=== PATIENT | female | born 1940 | race Caucasian/White ===

== ENCOUNTER → 2017-02-01 | Outpatient (CLI) | payer MEDICARE, BC ==
[2017-02-01 08:33] LABS: Blood Urea Nitrogen 14 mg/dL (7-17); Non-African American GFR(MDRD) >60 (>60 ml/min/1.73 sqM)
--- NOTE | 2017-02-01 10:22 | CT ---
EXAMINATION TYPE: CT abdomen pelvis w con DATE OF EXAM: 02/01/2017 9:48 AM HISTORY: LLQ pain CT DLP: 474.6mGycm Automated Exposure Control for Dose Reduction was Utilized. CONTRAST: CT scan of the abdomen and pelvis is performed with IV Contrast, patient injected with 100 mL of Omni paque 300. COMPARISON: None. FINDINGS: LUNG BASES: No significant abnormality is appreciated. LIVER/GB: Cholecystectomy clips are seen.. PANCREAS: No significant abnormality is seen. 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 ADRENALS: No significant abnormality is seen. KIDNEYS: There is a subcentimeter low dense lesion posteriorly upper pole level posteriorly too small to further characterize but presumed benign. BOWEL: There are surgical clips at diaphragmatic hiatus likely related to Shiva fundoplication surgi jena repair. Small residual hiatal hernia is felt present on axial image 11 and coronal image 43. Oral contrast reaches level of splenic flexure making evaluation of distal bowel suboptimal. There is no suspicious small or large bowel dilatation. There is mild to moderate wall thickening beginning at le anjali of the proximal to mid transverse colon extending through the left and sigmoid colon through the rectum. Finding could be product of nondistention but a long segment mild colitis cannot be excluded. Finding is more prominent than would be suspected for nondistended colon. Clinical correlation is ad vised. UTERUS/ADNEXA: Uterus is surgically absent or markedly atrophic in appearance. LYMPH NODES: No greater than 1cm abdominal or pelvic lymph nodes are appreciated. OSSEOUS STRUCTURES: There is disc space narrowing with vacuum disc phenomenon anteriorly L2-L3 level. OTHER: No significant additional abnormality is seen. IMPRESSION: 1. Possible long segment mild colitis from proximal to mid transverse colon through the rectum, diffe rential includes infectious and inflammatory etiologies. Clinical correlation is advised.
== END | disposition home or self-care (01) ==
LOC: RADCTMAIN 07:52
PROVIDERS: ATTEND Family Medicine
DX: R10.32 Left lower quadrant pain (principal)
CPT/HCPCS: 82565; 84520; 74177; 36415; Q9967

== ENCOUNTER 2017-04-01 23:39 | Emergency (ER) | payer MEDICARE, BC ==
[2017-04-02] MEDS ORDERED: ACETAMINOPHEN TAB 500 MG TAB PO STA (00:43)
--- NOTE | 2017-04-02 01:29 | XR ---
EXAM: XR Chest, 2 Views CLINICAL HISTORY: Reason: Pain TECHNIQUE: Frontal and lateral views of the chest. COMPARISON: Chest x-ray dated 04/14/2013 FINDINGS: Lungs: Unremarkable. No consolidation. Pleural space: Unremarkable. No pneumothorax. Heart: Unremarkable. No cardiomegaly. Mediastinum: Unremarkable. Bones/joints: Mild degenerative changes of the osseous structures. IMPRESSION: No acute findings.
[2017-04-02 01:55] LABS: Basophils # (A) 0.1 k/uL (0-0.2); Basophils % (A) 1 %; CH 32.7; CHCM 34.2; Eosinophils # (A) 0.5 k/uL (0-0.7); Eosinophils % (A) 5 %; HCT 37.3 % (34.0-46.0); HDW 2.66; HGB 12.5 gm/dL (11.4-16.0); Luc # (Auto) 0.38; Luc % (Auto) 4; Lymphocytes # (A) 2.5 k/uL (1.0-4.8); Lymphocytes % (A) 23 %; MCH 32.2 pg (25.0-35.0); MCHC 33.5 g/dL (31.0-37.0); Mean Platelet Volume 8.1; Monocytes # (A) 0.7 k/uL (0-1.0); Monocytes % (A) 7 %; Neutrophils # (A) 6.5 k/uL (1.3-7.7); Neutrophils % (A) 61 %; RBC 3.89 m/uL (3.80-5.40); RDW 12.9 % (11.5-15.5); WBC 10.7 k/uL (3.8-10.6); WBC (Perox) 9.63
[2017-04-02 02:14] LABS: ALT 44 U/L (9-52); Alkaline Phosphatase 68 U/L (38-126); Anion Gap 10 mmol/L; Blood Urea Nitrogen 13 mg/dL (7-17); Calcium 9.8 mg/dL (8.4-10.2); Carbon Dioxide 23 mmol/L (22-30); Chloride 107 mmol/L (98-107); Glucose 138 mg/dL (74-99); Non-African American GFR(MDRD) >60 (>60 ml/min/1.73 sqM); Sodium 140 mmol/L (137-145); Total Bilirubin 1.1 mg/dL (0.2-1.3)
[2017-04-02 02:19] LABS: AST 44 U/L (14-36); Potassium 4.5 mmol/L (3.5-5.1); Total Protein 8.3 g/dL (6.3-8.2)
--- NOTE | 2017-04-02 02:24 | ED ---
Pediatric HENT HPI - General Chief Complaint: ENT Stated Complaint: Ear Pain/Fever/Vertigo Time Seen by Provider: 04/02/17 00:14 Source: patient, RN notes reviewed, old records reviewed Mode of arrival: ambulatory Limitations: no limitations - History of Present Illness Initial Comments: Is a 68-year-old female with chief complaint of left-sided ear pain. Patient reports that she's had this pain for the past few days. She reports that she's been battling with vertigo and is worse in her left ear and left side for the past 5 weeks. She reports that she does see an ENT doctor on Monday. Patient denies any specific headache or neck pain. She reports that she's noticed that she's had a slight fever is concerned she may have an ear infection. She reports that she was told that her eardrum is perforated. She states that she has not taken any Motrin or Tylenol for fever. She's if that she was mainly concerned because of that she needed to have that checked out. Patient reports she also had a mild cough. Denies any nausea or vomiting abdominal pain. Patient reports that her dizziness and vertigo is worse with certain positions. Patient states it's worse with laying down. Patient reports that she did see her primary care provider and was started on diazepam and meclizine. She states that makes her feel very funny. She states she does not take diazepam anymore but the meclizine helped somewhat. - Related Data Home Medications Medication Instructions Recorded Confirmed Levothyroxine Sodium [Synthroid] 75 mcg PO QAM 08/27/14 04/02/17 Losartan Potassium [Cozaar] 50 mg PO QAM 08/27/14 04/02/17 Pantoprazole Sodium 40 mg PO QAM 08/27/14 04/02/17 Rosuvastatin Calcium [Crestor] 10 mg PO HS 08/27/14 04/02/17 diphenhydrAMINE [Benadryl] 25 mg PO BID PRN 08/27/14 04/02/17 Previous Rx's Medication Instructions Recorded Amoxic-Pot Clav 875-125Mg 1 tab PO Q12HR #20 tablet 04/02/17 [Augmentin 875-125] Ciprofloxacin Ophth Soln [Ciloxan 10 drops LEFT EAR BID #1 bottle 04/02/17 0.3% Ophth Soln] Allergies Allergy/AdvReac Type Severity Reaction Status Date / Time adhesive Allergy Rash/Hives Verified 04/02/17 00:03 Review of Systems ROS Statement: Those systems with pertinent positive or pertinent negative responses have been documented in the HPI. ROS Other: All systems not noted in ROS Statement are negative. Past Medical History Past Medical History: GERD/Reflux, Hyperlipidemia, Hypertension, Pneumonia, Thyroid Disorder Additional Past Medical History / Comment(s): HIATAL HERNIA. COLON POLYPS. PT STATES SHE HAS A RASH/ITCHING FROM EXPOSURE "STING METAL" WHICH IS A GARDEN WEED. History of Any Multi-Drug Resistant Organisms: None Reported Past Surgical History: Breast Surgery, Cholecystectomy, Hysterectomy, Orthopedic Surgery Additional Past Surgical History / Comment(s): BREAST BIOPSIES ALL NEGATIVE. CATARACTS REMOVED. Past Anesthesia/Blood Transfusion Reactions: No Reported Reaction Past Psychological History: No Psychological Hx Reported Smoking Status: Never smoker Past Alcohol Use History: None Reported Past Drug Use History: None Reported General Exam - General Exam Comments Initial Comments: This is a pleasant 28-year-old female. Patient does not appear to be in any acute distress. Limitations: no limitations General appearance: alert, in no apparent distress Head exam: Present: atraumatic, normocephalic, normal inspection Eye exam: Present: normal appearance, PERRL, EOMI. Absent: scleral icterus, conjunctival injection, periorbital swelling ENT exam: Present: normal exam, mucous membranes moist, other (mild tenderness on left mastoid. ). Absent: TM's normal bilaterally (evidence of left tm perforation at 11 oclock position. ) Neck exam: Present: normal inspection. Absent: tenderness, meningismus, lymphadenopathy Respiratory exam: Present: normal lung sounds bilaterally. Absent: respiratory distress, wheezes, rales, rhonchi, stridor Cardiovascular Exam: Present: regular rate, normal rhythm, normal heart sounds. Absent: systolic murmur, diastolic murmur, rubs, gallop, clicks GI/Abdominal exam: Present: soft, normal bowel sounds. Absent: distended, tenderness, guarding, rebound, rigid Extremities exam: Present: normal inspection, full ROM, normal capillary refill. Absent: tenderness, pedal edema, joint swelling, calf tenderness Back exam: Present: normal inspection Neurological exam: Present: alert, oriented X3, CN II-XII intact Psychiatric exam: Present: normal affect, normal mood Skin exam: Present: warm, dry, intact, normal color. Absent: rash Course Vital Signs 04/02/17 04/02/17 00:01 03:36 Temperature 100.0 F H 98.3 F Pulse Rate 100 80 Respiratory 20 16 Rate Blood Pressure 136/66 121/62 O2 Sat by Pulse 98 94 L Oximetry Medical Decision Making - Medical Decision Making Is a 68-year-old female with chief complaint of left-sided ear pain. Patient reports that she's had this pain for the past few days. She reports that she's been battling with vertigo and is worse in her left ear and left side for the past 5 weeks. She reports that she does see an ENT doctor on Monday. Patient denies any specific headache or neck pain. She reports that she's noticed that she's had a slight fever is concerned she may have an ear infection. She reports that she was told that her eardrum is perforated. She states that she has not taken any Motrin or Tylenol for fever. She's if that she was mainly concerned because of that she needed to have that checked out. Patient reports she also had a mild cough. Denies any nausea or vomiting abdominal pain. Patient left TM does show signs of previous perforation at 11 oclock position. Patient has no meningeal signs or neuroogical decicits. Patient lab work is negative. Patient does have a mild fever, patient given PO tylenol. CXR is normal. Patient has mild tenderness over left mastoid, CT mastoid is negative for any acute process. PAtient will be discharged with augmentin and ciprodrops for ear. discussed continued follow up with ENT specialist on Monday, discussed also following up with PCP and PT for possible Pop hallpike maneuver for helping her vertigo. Patient advised to continue meclizine. - Lab Data Result diagrams: 04/02/17 01:40 04/02/17 01:40 Lab Results 04/02/17 04/02/17 04/02/17 Range/Units 01:40 01:40 01:40 WBC 10.7 H (3.8-10.6) k/uL RBC 3.89 (3.80-5.40) m/uL Hgb 12.5 (11.4-16.0) gm/dL Hct 37.3 (34.0-46.0) % MCV 96.0 (80.0-100.0) fL MCH 32.2 (25.0-35.0) pg MCHC 33.5 (31.0-37.0) g/dL RDW 12.9 (11.5-15.5) % Plt Count 182 (150-450) k/uL Neutrophils % 61 % Lymphocytes % 23 % Monocytes % 7 % Eosinophils % 5 % Basophils % 1 % Neutrophils # 6.5 (1.3-7.7) k/uL Lymphocytes # 2.5 (1.0-4.8) k/uL Monocytes # 0.7 (0-1.0) k/uL Eosinophils # 0.5 (0-0.7) k/uL Basophils # 0.1 (0-0.2) k/uL Sodium 140 (137-145) mmol/L Potassium 4.5 (3.5-5.1) mmol/L Chloride 107 (98-107) mmol/L Carbon Dioxide 23 (22-30) mmol/L Anion Gap 10 mmol/L BUN 13 (7-17) mg/dL Creatinine 0.80 (0.52-1.04) mg/dL Est GFR (MDRD) Af Amer >60 (>60 ml/min/1.73 sqM) Est GFR (MDRD) Non-Af >60 (>60 ml/min/1.73 sqM) Glucose 138 H (74-99) mg/dL Plasma Lactic Acid Dmitri 1.4 (0.7-2.0) mmol/L Calcium 9.8 (8.4-10.2) mg/dL Total Bilirubin 1.1 (0.2-1.3) mg/dL AST 44 H (14-36) U/L ALT 44 (9-52) U/L Alkaline Phosphatase 68 (38-126) U/L Total Protein 8.3 H (6.3-8.2) g/dL Albumin 4.6 (3.5-5.0) g/dL Urine Color Urine Appearance (Clear) Urine pH (5.0-8.0) Ur Specific [place] (1.001-1.035) Urine Protein (Negative) Urine Glucose (UA) (Negative) Urine Ketones (Negative) Urine Blood (Negative) Urine Nitrite (Negative) Urine Bilirubin (Negative) Urine Urobilinogen (<2.0) mg/dL Ur Leukocyte Esterase (Negative) Urine RBC (0-5) /hpf Urine WBC (0-5) /hpf 04/02/17 Range/Units 01:40 WBC (3.8-10.6) k/uL RBC (3.80-5.40) m/uL Hgb (11.4-16.0) gm/dL Hct (34.0-46.0) % MCV (80.0-100.0) fL MCH (25.0-35.0) pg MCHC (31.0-37.0) g/dL RDW (11.5-15.5) % Plt Count (150-450) k/uL Neutrophils % % Lymphocytes % % Monocytes % % Eosinophils % % Basophils % % Neutrophils # (1.3-7.7) k/uL Lymphocytes # (1.0-4.8) k/uL Monocytes # (0-1.0) k/uL Eosinophils # (0-0.7) k/uL Basophils # (0-0.2) k/uL Sodium (137-145) mmol/L Potassium (3.5-5.1) mmol/L Chloride (98-107) mmol/L Carbon Dioxide (22-30) mmol/L Anion Gap mmol/L BUN (7-17) mg/dL Creatinine (0.52-1.04) mg/dL Est GFR (MDRD) Af Amer (>60 ml/min/1.73 sqM) Est GFR (MDRD) Non-Af (>60 ml/min/1.73 sqM) Glucose (74-99) mg/dL Plasma Lactic Acid Dmitri (0.7-2.0) mmol/L Calcium (8.4-10.2) mg/dL Total Bilirubin (0.2-1.3) mg/dL AST (14-36) U/L ALT (9-52) U/L Alkaline Phosphatase (38-126) U/L Total Protein (6.3-8.2) g/dL Albumin (3.5-5.0) g/dL Urine Color Light Yellow Urine Appearance Clear (Clear) Urine pH 5.0 (5.0-8.0) Ur Specific [place] 1.008 (1.001-1.035) Urine Protein Negative (Negative) Urine Glucose (UA) Negative (Negative) Urine Ketones Negative (Negative) Urine Blood Negative (Negative) Urine Nitrite Negative (Negative) Urine Bilirubin Negative (Negative) Urine Urobilinogen <2.0 (<2.0) mg/dL Ur Leukocyte Esterase Small H (Negative) Urine RBC <1 (0-5) /hpf Urine WBC 11 H (0-5) /hpf Disposition Clinical Impression: Left ear pain, Vertigo, Fever Disposition: HOME SELF-CARE Condition: Good Instructions: Earache (ED) Additional Instructions: Patient needs to follow-up with her ENT specialist on Monday. Continue to take Tylenol for fever. Complete entire antibiotic and ear drop prescription. Patient should return to the emergency department if any alarming signs or symptoms occur. Prescriptions: Amoxic-Pot Clav 875-125Mg [Augmentin 875-125] 1 tab PO Q12HR #20 tablet Ciprofloxacin Ophth Soln [Ciloxan 0.3% Ophth Soln] 10 drops LEFT EAR BID #1 bottle Referrals: Gage Brito MD [Primary Care Provider] - 1-2 days Time of Disposition: 03:25
--- NOTE | 2017-04-02 02:28 | CT ---
EXAM: CT Maxillofacial Without Intravenous Contrast CLINICAL HISTORY: Pain. Ruptured left eardrum. TECHNIQUE: Axial computed tomography images of the face without intravenous contrast. CTDI is 32.1 mGy and DLP is 480.8 mGy-cm This CT exam was performed using one or more of the following dose reduction techniques: automated exposure control, adjustment of the mA and/or kV according to patient size, and/or use of iterative reconstruction technique. COMPARISON: No relevant prior studies available. FINDINGS: Bones/joints: No acute fracture. Soft tissues: Unremarkable. Orbits: Unremarkable. Sinuses: Minimal mucosal thickening in the paranasal sinuses. No air- fluid levels. Mastoid air cells: Minimal fluid noted within the left mastoid air cells. Otherwise, the mastoids are unremarkable. Auditory system: The ossicles are unremarkable. The external auditory canals are unremarkable. IMPRESSION: No acute findings.
[2017-04-02 03:01] LABS: Appearance,Urine Clear (Clear); Bilirubin,Urine Negative (Negative); Glucose,Urine (UA) Negative (Negative); Ketones,Urine Negative (Negative); Leukocyte Esterase,Urine Small (Negative); Nitrite,Urine Negative (Negative); Particle Count 509; Protein,Urine Negative (Negative); RBC,Urine <1 /hpf (0-5); Specific Gravity,Urine 1.008 (1.001-1.035); UA Billing (MACRO vs. MICRO) MICRO; Urobilinogen,Urine <2.0 mg/dL (<2.0); WBC,Urine 11 /hpf (0-5)
[2017-04-02] MEDS ORDERED: AMOXIC-POT CLAV 875MG STARTER 2 EACH TABLET PO STA (03:25)
[2017-04-02] MEDS ORDERED: CIPROFLOXACIN 0.3% OPHTH SOLN 2.5 ML BTL LEFT EAR STA (03:26)
[2017-04-02 03:38] VITALS: BP 121/62; PULSE 80; RESP 16; TEMP 98.3
== END 2017-04-02 04:16 | disposition home or self-care (01) ==
LOC: EC 23:39
DX: H92.02 Otalgia, left ear (principal); R42 Dizziness and giddiness; R50.9 Fever, unspecified; I10 Essential (primary) hypertension; E78.5 Hyperlipidemia, unspecified; K21.9 Gastro-esophageal reflux disease without esophagitis; E07.9 Disorder of thyroid, unspecified; Z79.899 Other long term (current) drug therapy; Z91.048 Other nonmedicinal substance allergy status
CPT/HCPCS: 36415; 70486; 71020; 80053; 81001; 83605; 85025; 99285

== ENCOUNTER → 2017-06-23 | Outpatient (CLI) | payer MEDICARE, BC ==
--- NOTE | 2017-06-24 08:04 | MR ---
EXAMINATION TYPE: MR brain wo con DATE OF EXAM: 06/23/2017 COMPARISON: CT mastoids April 02, 2017 HISTORY: Benign paroxysmal vertigo, left ear and dizziness per order. TECHNIQUE: Multiplanar, multisequence imaging of the brain and brainstem is performed without IV cont rast. FINDINGS: Diffusion weighted images demonstrate no evidence of a recent infarct or other diffusion abnormality. There is no worrisome extra-axial fluid collection. There is ventricular and sulcal prominence consis tent with diffuse cerebral atrophy. There are some scattered foci of T2 hyperintensity seen throughou t the white matter. Less than 5 lesions are present. Lesions are nonspecific in appearance and distri bution but most likely on basis of product of chronic small vessel ischemic change in patient this ag e Midline structures demonstrate normal morphology. The craniocervical junction appears within normal limits. Normal vascular flow voids are present. The visualized sinuses are clear and the globes are i ntact. Minimal increased fluid is seen anteriorly involving left-sided mastoid air cells IMPRESSION: There is mild diffuse cerebral atrophy and chronic small vessel ischemic change appreciat ed. Perhaps mild left-sided mastoiditis, clinical correlation advised. No significant finding otherwi se is seen to account for patient's symptoms of dizziness and left-sided hearing loss.
== END | disposition home or self-care (01) ==
LOC: RADMRIMAIN 15:07
PROVIDERS: ATTEND Psychiatry & Neurology Neurology
DX: I67.82 Cerebral ischemia (principal); G31.9 Degenerative disease of nervous system, unspecified
CPT/HCPCS: 70551

== ENCOUNTER → 2017-08-14 | Outpatient (CLI) | payer MEDICARE, BC ==
--- NOTE | 2017-08-16 09:13 | MM ---
Reason for exam: screening (asymptomatic). Last mammogram was performed 1 year and 10 months ago. History: Patient is postmenopausal. Family history of breast cancer in paternal aunt at age 40. Benign excisional biopsy of the right breast, 1978. Benign excisional biopsy of the left breast, 1976. Took estrogen for 15 years beginning at age 46. Physical Findings: A clinical breast exam by your physician is recommended on an annual basis and results should be correlated with mammographic findings. MG 3D Screening Mammo W/Cad Bilateral CC and MLO view(s) were taken. Prior study comparison: October 27, 2015, mammogram. The breast tissue is heterogeneously dense. This may lower the sensitivity of mammography. There is increased density left lower inner quadrant, increasing from priors. This finding is changed when compared with previous exams. ASSESSMENT: Incomplete: need additional imaging evaluation, BI-RAD 0 RECOMMENDATION: Special view mammogram of the left breast. If lesion persists on supplemental views, image directed ultrasound is recommended. [facility] will attempt to contact patient to return for supplemental views and ultrasound if indicated.
== END | disposition home or self-care (01) ==
LOC: RADMAMWWP 12:49
PROVIDERS: ATTEND Obstetrics & Gynecology
DX: Z12.31 Encounter for screening mammogram for malignant neoplasm of breast (principal)
CPT/HCPCS: 77063; G0202

== ENCOUNTER → 2017-08-22 | Outpatient (CLI) | payer MEDICARE, BC ==
--- NOTE | 2017-08-22 13:48 | MM ---
Reason for exam: additional evaluation requested from abnormal screening. Last mammogram was performed less than 1 month ago. History: Patient is postmenopausal. Family history of breast cancer in paternal aunt at age 40. Benign excisional biopsy of the right breast, 1978. Benign excisional biopsy of the left breast, 1976. Took estrogen for 15 years beginning at age 46. Physical Findings: Nurse did not find any significant physical abnormalities on exam. MG 3D Work Up W/Cad LT CC and MLO view(s) were taken of the left breast. Prior study comparison: August 14, 2017, bilateral MG 3d screening mammo w/cad. October 27, 2015, mammogram. The breast tissue is extremely dense which could obscure a lesion on mammography. Finding: There are typically benign calcifications in the left breast. Skin thickening left areolar/nipple. These results were verbally communicated with the patient and result sheet given to the patient on 08/22/17. ASSESSMENT: Suspicious, BI-RAD 4 RECOMMENDATION: Surgical consultation of the left breast. Called Dr. Riggs with mammographic findings and has scheduled an appointment for the patient for 08/30/17 at 3:[address] Yee. PRELIMINARY REPORT CALLED AND FAXED TO DR. YEE ON 08/22/17.
== END | disposition home or self-care (01) ==
LOC: RADMAMWWP 12:50
PROVIDERS: ATTEND Obstetrics & Gynecology
DX: R92.8 Other abnormal and inconclusive findings on diagnostic imaging of breast (principal)
CPT/HCPCS: G0206; G0279

== ENCOUNTER → 2018-05-18 | Outpatient (CLI) | payer MEDICARE, BC ==
--- NOTE | 2018-05-19 10:51 | CT ---
EXAMINATION TYPE: CT abdomen pelvis w con DATE OF EXAM: 05/18/2018 COMPARISON: Prior CT 02/01/2017 HISTORY: Abnormal xray. CT DLP: 413.7 mGycm Automated exposure control for dose reduction was used. TECHNIQUE: Helical acquisition of images from the lung bases through the pelvis have been completed. CONTRAST: Performed with Oral Contrast and with IV Contrast, patient injected with 80 mL of Isovue M300. FINDINGS: Postop changes at the gastroesophageal junction are stable. LUNG BASES: No significant abnormality is appreciated. AORTA: No significant abnormality is appreciated. LIVER/GB: Patient is post cholecystectomy. Liver is stable. PANCREAS: No significant abnormality is seen. SPLEEN: No significant abnormality is seen. ADRENALS: No significant abnormality is seen. KIDNEYS: No significant abnormality is seen. REPRODUCTIVE ORGANS: No significant abnormality is seen BOWEL: Sigmoid colon shows a similar appearance, difficult to exclude mucosal abnormality, colitis a s on prior exam FREE AIR: No Free Air visible. ASCITES: None visible. PELVIC ADENOPATHY: None visualized. RETROPERITONEAL ADENOPATHY: No Retroperitoneal Adenopathy visible. URINARY BLADDER: No significant abnormality is seen. OSSEOUS STRUCTURES: No significant abnormality is seen. IMPRESSION: CORRELATE FOR COLITIS. FOLLOW-UP INDICATED. POSTOP CHANGES.
== END | disposition home or self-care (01) ==
LOC: RADCTMAIN 15:14
PROVIDERS: ATTEND Family Medicine
DX: Z09 Encounter for follow-up examination after completed treatment for conditions other than malignant neoplasm (principal); K56.699 Other intestinal obstruction unspecified as to partial versus complete obstruction; K44.9 Diaphragmatic hernia without obstruction or gangrene; Z98.890 Other specified postprocedural states; Z87.19 Personal history of other diseases of the digestive system
CPT/HCPCS: 82565; 84520; 74177; 36415; Q9967

== ENCOUNTER 2018-06-02 01:24 | Emergency (ER) | payer MEDICARE, BC ==
[2018-06-02 02:15] LABS: Basophils % (A) 0 %; Eosinophils # (A) 0.3 k/uL (0-0.7); Eosinophils % (A) 4 %; HCT 37.9 % (34.0-46.0); HGB 12.6 gm/dL (11.4-16.0); Lymphocytes # (A) 1.1 k/uL (1.0-4.8); Lymphocytes % (A) 15 %; MCHC 33.2 g/dL (31.0-37.0); MCV 96.3 fL (80.0-100.0); Mean Platelet Volume 7.9; Monocytes # (A) 0.5 k/uL (0-1.0); Monocytes % (A) 6 %; Neutrophils # (A) 5.7 k/uL (1.3-7.7); Neutrophils % (A) 72 %; Platelet Count 161 k/uL (150-450); RBC 3.93 m/uL (3.80-5.40); RDW 12.6 % (11.5-15.5); WBC 7.8 k/uL (3.8-10.6)
[2018-06-02 02:37] LABS: Calcium 9.3 mg/dL (8.4-10.2); Potassium 4.1 mmol/L (3.5-5.1); Total Bilirubin 0.4 mg/dL (0.2-1.3); Total Protein 6.7 g/dL (6.3-8.2)
[2018-06-02 03:25] LABS: Appearance,Urine Clear (Clear); Bilirubin,Urine Negative (Negative); Blood,Urine Negative (Negative); Color,Urine Yellow; Glucose,Urine (UA) Negative (Negative); Ketones,Urine Negative (Negative); Leukocyte Esterase,Urine Small (Negative); Mucus,Urine Rare /hpf; Nitrite,Urine Negative (Negative); Protein,Urine Negative (Negative); RBC,Urine 1 /hpf (0-5); Specific Gravity,Urine 1.022 (1.001-1.035); Squamous Epithelial Cell,Urine <1 /hpf (0-4); Urobilinogen,Urine <2.0 mg/dL (<2.0); WBC,Urine 9 /hpf (0-5)
--- NOTE | 2018-06-02 05:56 | ED ---
Abdominal Pain HPI - General Chief Complaint: Abdominal Pain Stated Complaint: Chest pain Time Seen by Provider: 06/02/18 01:58 Source: patient, family Mode of arrival: wheelchair Limitations: no limitations - History of Present Illness MD Complaint: abdominal pain Onset/Timin -: hour(s) Location: epigastric Radiation: none Severity: moderate Quality: other ("like gas") Consistency: intermittent Improves With: nothing Worsens With: nothing Associated Symptoms: nausea - Related Data Home Medications Medication Instructions Recorded Confirmed Levothyroxine Sodium [Synthroid] 75 mcg PO QAM 08/27/14 06/02/18 Losartan Potassium [Cozaar] 50 mg PO QAM 08/27/14 06/02/18 Pantoprazole Sodium 40 mg PO QAM 08/27/14 06/02/18 Rosuvastatin Calcium [Crestor] 10 mg PO HS 08/27/14 06/02/18 diphenhydrAMINE [Benadryl] 25 mg PO BID PRN 08/27/14 06/02/18 Previous Rx's Medication Instructions Recorded Amoxic-Pot Clav 875-125Mg 1 tab PO Q12HR #20 tablet 04/02/17 [Augmentin 875-125] Ciprofloxacin Ophth Soln [Ciloxan 10 drops LEFT EAR BID #1 bottle 04/02/17 0.3% Ophth Soln] Allergies Allergy/AdvReac Type Severity Reaction Status Date / Time adhesive Allergy Rash/Hives Verified 06/02/18 01:30 Review of Systems ROS Statement: Those systems with pertinent positive or pertinent negative responses have been documented in the HPI. ROS Other: All systems not noted in ROS Statement are negative. Constitutional: Denies: fever, chills Respiratory: Denies: cough, dyspnea Cardiovascular: Reports: chest pain. Denies: palpitations, dyspnea on exertion , orthopnea, edema Gastrointestinal: Reports: abdominal pain, nausea. Denies: vomiting, diarrhea, constipation, hematemesis, melena Genitourinary: Denies: dysuria, hematuria Musculoskeletal: Denies: back pain, joint swelling Skin: Denies: rash Neurological: Denies: headache, weakness, numbness Past Medical History Past Medical History: GERD/Reflux, Hyperlipidemia, Hypertension, Pneumonia, Thyroid Disorder Additional Past Medical History / Comment(s): HIATAL HERNIA. COLON POLYPS. PT STATES SHE HAS A RASH/ITCHING FROM EXPOSURE "STING METAL" WHICH IS A GARDEN WEED. History of Any Multi-Drug Resistant Organisms: None Reported Past Surgical History: Breast Surgery, Cholecystectomy, Hysterectomy, Orthopedic Surgery Additional Past Surgical History / Comment(s): BREAST BIOPSIES ALL NEGATIVE. CATARACTS REMOVED. Past Anesthesia/Blood Transfusion Reactions: No Reported Reaction Past Psychological History: No Psychological Hx Reported Smoking Status: Never smoker Past Alcohol Use History: None Reported Past Drug Use History: None Reported General Exam Limitations: no limitations General appearance: alert, in no apparent distress Head exam: Present: atraumatic, normocephalic Eye exam: Present: normal appearance. Absent: scleral icterus, conjunctival injection ENT exam: Present: normal oropharynx Neck exam: Present: normal inspection Respiratory exam: Present: normal lung sounds bilaterally. Absent: respiratory distress, wheezes, rales, rhonchi, stridor Cardiovascular Exam: Present: regular rate, normal rhythm, normal heart sounds. Absent: systolic murmur, diastolic murmur, rubs, gallop GI/Abdominal exam: Present: soft. Absent: distended, tenderness, guarding, rebound, mass, pulsatile mass, hernia Extremities exam: Present: normal inspection, normal capillary refill. Absent: pedal edema, calf tenderness Back exam: Present: normal inspection. Absent: CVA tenderness (R), CVA tenderness (L) Neurological exam: Present: alert Skin exam: Present: warm, dry, intact, normal color. Absent: rash Course Vital Signs 06/02/18 06/02/18 06/02/18 01:28 05:00 06:19 Temperature 98.4 F 97.8 F 98.2 F Pulse Rate 81 71 73 Respiratory 18 18 15 Rate Blood Pressure 132/70 116/59 141/65 O2 Sat by Pulse 98 97 96 Oximetry Medical Decision Making - Medical Decision Making Patient is 77-year-old woman with epigastric pain. I did discuss admission for telemetry and serial cardiac enzymes, but the patient is declining. She states that the pain has not recurred. She does agree to return if any symptoms do recur or any new ones develop. 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 Discussed return parameters - Lab Data Result diagrams: 06/02/18 01:59 06/02/18 01:59 Lab Results 06/02/18 06/02/18 06/02/18 Range/Units 01:59 01:59 01:59 WBC 7.8 (3.8-10.6) k/uL RBC 3.93 (3.80-5.40) m/uL Hgb 12.6 (11.4-16.0) gm/dL Hct 37.9 (34.0-46.0) % MCV 96.3 (80.0-100.0) fL MCH 32.0 (25.0-35.0) pg MCHC 33.2 (31.0-37.0) g/dL RDW 12.6 (11.5-15.5) % Plt Count 161 (150-450) k/uL Neutrophils % 72 % Lymphocytes % 15 % Monocytes % 6 % Eosinophils % 4 % Basophils % 0 % Neutrophils # 5.7 (1.3-7.7) k/uL Lymphocytes # 1.1 (1.0-4.8) k/uL Monocytes # 0.5 (0-1.0) k/uL Eosinophils # 0.3 (0-0.7) k/uL Basophils # 0.0 (0-0.2) k/uL Sodium 140 (137-145) mmol/L Potassium 4.1 (3.5-5.1) mmol/L Chloride 108 H (98-107) mmol/L Carbon Dioxide 23 (22-30) mmol/L Anion Gap 9 mmol/L BUN 21 H (7-17) mg/dL Creatinine 0.80 (0.52-1.04) mg/dL Est GFR (CKD-EPI)AfAm 81 (>60 ml/min/1.73 sqM) Est GFR (CKD-EPI)NonAf 71 (>60 ml/min/1.73 sqM) Glucose 132 H (74-99) mg/dL Calcium 9.3 (8.4-10.2) mg/dL Total Bilirubin 0.4 (0.2-1.3) mg/dL AST 33 (14-36) U/L ALT 43 (9-52) U/L Alkaline Phosphatase 67 (38-126) U/L Troponin I <0.012 (0.000-0.034) ng/mL Total Protein 6.7 (6.3-8.2) g/dL Albumin 4.0 (3.5-5.0) g/dL Amylase 94 (30-110) U/L Lipase 125 (23-300) U/L Urine Color Urine Appearance (Clear) Urine pH (5.0-8.0) Ur Specific [place] (1.001-1.035) Urine Protein (Negative) Urine Glucose (UA) (Negative) Urine Ketones (Negative) Urine Blood (Negative) Urine Nitrite (Negative) Urine Bilirubin (Negative) Urine Urobilinogen (<2.0) mg/dL Ur Leukocyte Esterase (Negative) Urine RBC (0-5) /hpf Urine WBC (0-5) /hpf Ur Squamous Epith Cells (0-4) /hpf Urine Mucus (None) /hpf 06/02/18 Range/Units 03:07 WBC (3.8-10.6) k/uL RBC (3.80-5.40) m/uL Hgb (11.4-16.0) gm/dL Hct (34.0-46.0) % MCV (80.0-100.0) fL MCH (25.0-35.0) pg MCHC (31.0-37.0) g/dL RDW (11.5-15.5) % Plt Count (150-450) k/uL Neutrophils % % Lymphocytes % % Monocytes % % Eosinophils % % Basophils % % Neutrophils # (1.3-7.7) k/uL Lymphocytes # (1.0-4.8) k/uL Monocytes # (0-1.0) k/uL Eosinophils # (0-0.7) k/uL Basophils # (0-0.2) k/uL Sodium (137-145) mmol/L Potassium (3.5-5.1) mmol/L Chloride (98-107) mmol/L Carbon Dioxide (22-30) mmol/L Anion Gap mmol/L BUN (7-17) mg/dL Creatinine (0.52-1.04) mg/dL Est GFR (CKD-EPI)AfAm (>60 ml/min/1.73 sqM) Est GFR (CKD-EPI)NonAf (>60 ml/min/1.73 sqM) Glucose (74-99) mg/dL Calcium (8.4-10.2) mg/dL Total Bilirubin (0.2-1.3) mg/dL AST (14-36) U/L ALT (9-52) U/L Alkaline Phosphatase (38-126) U/L Troponin I (0.000-0.034) ng/mL Total Protein (6.3-8.2) g/dL Albumin (3.5-5.0) g/dL Amylase (30-110) U/L Lipase (23-300) U/L Urine Color Yellow Urine Appearance Clear (Clear) Urine pH 5.0 (5.0-8.0) Ur Specific [place] 1.022 (1.001-1.035) Urine Protein Negative (Negative) Urine Glucose (UA) Negative (Negative) Urine Ketones Negative (Negative) Urine Blood Negative (Negative) Urine Nitrite Negative (Negative) Urine Bilirubin Negative (Negative) Urine Urobilinogen <2.0 (<2.0) mg/dL Ur Leukocyte Esterase Small H (Negative) Urine RBC 1 (0-5) /hpf Urine WBC 9 H (0-5) /hpf Ur Squamous Epith Cells <1 (0-4) /hpf Urine Mucus Rare H (None) /hpf - EKG Data -: EKG Interpreted by Ne EKG shows normal: sinus rhythm, axis (Normal), intervals (Normal), QRS complexes (Normal), ST-T waves (Normal) Rate: normal (Rate 76 bpm) Interpretation: normal EKG Disposition Clinical Impression: Epigastric abdominal pain Disposition: HOME SELF-CARE Condition: Good Instructions: Abdominal Pain (ED) Is patient prescribed a controlled substance at d/c from ED?: No Referrals: Gage Brito MD [Primary Care Provider] - 1-2 days
[2018-06-02 06:20] VITALS: BP 141/65; PULSE 73; RESP 15; TEMP 98.2
== END 2018-06-02 06:21 | disposition home or self-care (01) ==
LOC: EC 01:24
DX: R10.13 Epigastric pain (principal); K21.9 Gastro-esophageal reflux disease without esophagitis; E78.5 Hyperlipidemia, unspecified; I10 Essential (primary) hypertension; E07.9 Disorder of thyroid, unspecified; Z86.010 Personal history of colon polyps; Z87.19 Personal history of other diseases of the digestive system; Z90.49 Acquired absence of other specified parts of digestive tract; Z90.710 Acquired absence of both cervix and uterus; Z98.890 Other specified postprocedural states; Z79.899 Other long term (current) drug therapy; Z91.048 Other nonmedicinal substance allergy status
CPT/HCPCS: 36415; 80053; 81001; 82150; 83690; 84484; 85025; 93005; 99284

== ENCOUNTER → 2018-06-12 | Outpatient (CLI) | payer MEDICARE, BC ==
--- NOTE | 2018-06-12 15:54 | CT ---
EXAMINATION TYPE: CT abdomen w con DATE OF EXAM: 06/12/2018 COMPARISON: 05/18/2018 HISTORY: abdominal pain, hx of hiatal hernia CT DLP: 316.8 mGycm CONTRAST: CT scan of the abdomen is performed with Oral Contrast and with IV Contrast, patient injected with 1 00 mL of Isovue 300. FINDINGS: LUNG BASES-: No visible nodule. No infiltrate. LIVER/GB: Cholecystectomy clips are in place. No space occupying hepatic lesion. Biliary tree is o f normal caliber. PANCREAS: No inflammation. No distinct mass. SPLEEN: No splenic enlargement. No lesion seen. ADRENALS: No nodule. No thickening. KIDNEYS/BLADDER: No hydronephrosis. No nephrolithiasis. No distinct renal mass. Urinary bladder g rossly unremarkable. BOWEL: Fixed hiatal hernia. Appendix not clearly visualized. Normal bowel caliber. No inflammation. LYMPH NODES: No greater than 1cm abdominal or pelvic lymph nodes are appreciated. AORTA: No significant abnormality. OSSEOUS STRUCTURES: No significant abnormality is seen. OTHER: No significant additional abnormality is seen. IMPRESSION: 1. Small fixed hiatal hernia. Surgical changes of previous Shiva fundoplication.
== END | disposition home or self-care (01) ==
LOC: RADCTMAIN 14:36
PROVIDERS: ATTEND Family Medicine
DX: K44.9 Diaphragmatic hernia without obstruction or gangrene (principal)
CPT/HCPCS: 82565; 84520; 74160; 36415; Q9967

== ENCOUNTER → 2018-08-16 | Outpatient (CLI) | payer MEDICARE, BC ==
--- NOTE | 2018-08-16 14:16 | MM ---
Reason for exam: additional evaluation requested from prior study. Last mammogram was performed 1 year ago. History: Patient is postmenopausal. Family history of breast cancer in paternal aunt at age 40. Benign excisional biopsy of the right breast, 1978. Benign excisional biopsy of the left breast, 1976. Took estrogen for 15 years beginning at age 46. Physical Findings: Nurse did not find any significant physical abnormalities on exam. MG 3D Diag Mammo W/Cad VANESA Bilateral CC and MLO view(s) were taken. Prior study comparison: August 22, 2017, left breast MG 3d work up w/cad LT. August 14, 2017, bilateral MG 3d screening mammo w/cad. The breast tissue is heterogeneously dense. This may lower the sensitivity of mammography. Benign vascular calcifications. No significant new findings when compared with previous films. These results were verbally communicated with the patient and result sheet given to the patient on 08/16/18. ASSESSMENT: Negative, BI-RAD 1 RECOMMENDATION: Routine screening mammogram of both breasts in 1 year.
== END ==
LOC: RADMAMWWP 12:47
PROVIDERS: ATTEND Obstetrics & Gynecology
DX: R92.8 Other abnormal and inconclusive findings on diagnostic imaging of breast (principal)
CPT/HCPCS: 77066; G0279; 77062

== ENCOUNTER 2018-11-13 16:10 | Emergency (ER) | payer MEDICARE, BC ==
[2018-11-13 16:19] VITALS: TEMP 98.9
[2018-11-13] MEDS ORDERED: SODIUM CHLORIDE 0.9% 1,000 ML IV STA (17:03)
--- NOTE | 2018-11-13 17:30 | ED ---
General Adult HPI - General Chief complaint: Upper Respiratory Infection Stated complaint: POSS PNEUMONIA Source: patient, RN notes reviewed, old records reviewed Mode of arrival: ambulatory Limitations: no limitations - History of Present Illness Initial comments: 78-year-old female patient past medical history of hypertension, hypothyroidism , hyperlipidemia presents to ED with 3 day history of nonproductive cough, rhinitis. Patient states she is also having some shortness of breath after coughing. Patient additionally complains of some right rib pain below her breasts which has resolved that she believed was secondary to coughing. Patient denies abdominal pain, nausea vomiting diarrhea, fever chills or any other symptoms. Systemic: Pt denies fatigue, myalgia, fever/chills, rash. Pt denies weakness, night sweats, weight loss. Neuro: Pt denies headache, visual disturbances, syncope or pre-syncope. HEENT: Pt denies ocular discharge or irritation, otalgia, rhinorrhea, pharyngitis or notable lymphadenopathy. Cardiopulmonary: Pt denies heart palpitations, dyspnea on exertion. Abdominal/GI: Pt denies abdominal pain, n/v/d. : Pt denies dysuria, burning w/ urination, frequency/urgency. Denies new onset urinary or bowel incontinence. MSK: Pt denies myalgia, loss of strength or function in extremities. Neuro: Pt denies new onset weakness, paresthesias. - Related Data Home Medications Medication Instructions Recorded Confirmed Levothyroxine Sodium [Synthroid] 75 mcg PO QAM 08/27/14 06/02/18 Losartan Potassium [Cozaar] 50 mg PO QAM 08/27/14 06/02/18 Pantoprazole Sodium 40 mg PO QAM 08/27/14 06/02/18 Rosuvastatin Calcium [Crestor] 10 mg PO HS 08/27/14 06/02/18 diphenhydrAMINE [Benadryl] 25 mg PO BID PRN 08/27/14 06/02/18 Previous Rx's Medication Instructions Recorded Amoxic-Pot Clav 875-125Mg 1 tab PO Q12HR #20 tablet 04/02/17 [Augmentin 875-125] Ciprofloxacin Ophth Soln [Ciloxan 10 drops LEFT EAR BID #1 bottle 04/02/17 0.3% Ophth Soln] Benzonatate [Tessalon Perles] 100 mg PO TID PRN #20 capsule 11/13/18 Allergies Allergy/AdvReac Type Severity Reaction Status Date / Time adhesive Allergy Rash/Hives Verified 11/13/18 16:15 Review of Systems ROS Statement: Those systems with pertinent positive or pertinent negative responses have been documented in the HPI. ROS Other: All systems not noted in ROS Statement are negative. Past Medical History Past Medical History: GERD/Reflux, Hyperlipidemia, Hypertension, Pneumonia, Thyroid Disorder Additional Past Medical History / Comment(s): HIATAL HERNIA. COLON POLYPS. PT STATES SHE HAS A RASH/ITCHING FROM EXPOSURE "STING METAL" WHICH IS A GARDEN WEED. History of Any Multi-Drug Resistant Organisms: None Reported Past Surgical History: Breast Surgery, Cholecystectomy, Hysterectomy, Orthopedic Surgery Additional Past Surgical History / Comment(s): BREAST BIOPSIES ALL NEGATIVE. CATARACTS REMOVED. Past Anesthesia/Blood Transfusion Reactions: No Reported Reaction Past Psychological History: No Psychological Hx Reported Smoking Status: Never smoker Past Alcohol Use History: None Reported Past Drug Use History: None Reported General Exam - General Exam Comments Initial Comments: Constitutional: NAD, AOX3, Pt has pleasant affect. HEENT: NC/AT, trachea midline, neck supple, no lymphadenopathy. Posterior pharynx non erythematous, without exudates. External ears appear normal, without discharge. Mucous membranes moist. Eyes PERRLA, EOM intact. There is no scleral icterus. No pallor noted. Cardiopulmonary: RRR, no murmurs, rubs or gallops, no JVD noted. Lungs CTAB in anterior and posterior narvaez. No peripheral edema. Abdominal exam: Abdomen soft and non-distended. Abdomen non-tender to palpation in all 4 quadrants. Bowel sounds active in LLQ. No hepatosplenomegaly. No ecchymosis Neuro: CN II-XII grossly intact. No nuchal rigidity. MSK: No posterior calf tenderness bilaterally, homans sign negative bilaterally. Posterior tibialis and radial pulse +2 bilaterally. Sensation intact in upper and lower extremities. Full active ROM in upper and lower extremities, 5/5 strength. Limitations: no limitations Course Vital Signs 11/13/18 11/13/18 11/13/18 16:15 16:39 17:30 Temperature 98.9 F Pulse Rate 95 80 80 Respiratory 18 Rate Blood Pressure 132/78 129/71 124/67 O2 Sat by Pulse 99 97 95 Oximetry 11/13/18 19:59 Temperature Pulse Rate 81 Respiratory 16 Rate Blood Pressure 129/65 O2 Sat by Pulse 96 Oximetry Medical Decision Making - Medical Decision Making 78-year-old female patient past medical history of hypertension, hypothyroidism , hyperlipidemia presents to ED with 3 day history of nonproductive cough, rhinitis. Patient states she is also having some shortness of breath after coughing. Patient additionally complains of some right rib pain below her breasts which has resolved that she believed was secondary to coughing. Patient denies abdominal pain, nausea vomiting diarrhea, fever chills or any other symptoms. Physical exam didn't display acute pathology. Laboratory investigations were conducted, CBC, CMP non-impressive. D-dimer negative. Lactic acid within normal limits UA non-impressive. Troponin negative. Amylase lipase within normal limits. Chest did not display acute process. EKG not concerning for acute ischemia. Patient diagnosed with upper respiratory infection. Tessalon Perles prescribed for cough. Patient will use over-the- counter cough syrup at home. Patient fell PCP in 1-2 days. Patient to return to ED if condition worsens in anyway. Or new signs symptoms develop. Case discussed with Dr. Mei. - Lab Data Result diagrams: 11/13/18 16:32 11/13/18 16:32 Lab Results 11/13/18 11/13/18 11/13/18 Range/Units 16:32 16:32 16:32 WBC 3.3 L (3.8-10.6) k/uL RBC 4.11 (3.80-5.40) m/uL Hgb 12.5 (11.4-16.0) gm/dL Hct 40.5 (34.0-46.0) % MCV 98.4 (80.0-100.0) fL MCH 30.4 (25.0-35.0) pg MCHC 30.9 L (31.0-37.0) g/dL RDW 13.1 (11.5-15.5) % Plt Count 157 (150-450) k/uL Neutrophils % (Manual) 53 % Lymphocytes % (Manual) 30 % Monocytes % (Manual) 12 % Eosinophils % (Manual) 5 % Neutrophils # (Manual) 1.75 (1.3-7.7) k/uL Lymphocytes # (Manual) 0.99 L (1.0-4.8) k/uL Monocytes # (Manual) 0.40 (0-1.0) k/uL Eosinophils # (Manual) 0.17 (0-0.7) k/uL Nucleated RBCs 0 (0-0) /100 WBC Manual Slide Review Performed RBC Morphology Normal D-Dimer (<0.60) mg/L FEU Sodium 143 (137-145) mmol/L Potassium 3.8 (3.5-5.1) mmol/L Chloride 108 H (98-107) mmol/L Carbon Dioxide 25 (22-30) mmol/L Anion Gap 10 mmol/L BUN 17 (7-17) mg/dL Creatinine 0.83 (0.52-1.04) mg/dL Est GFR (CKD-EPI)AfAm 77 (>60 ml/min/1.73 sqM) Est GFR (CKD-EPI)NonAf 67 (>60 ml/min/1.73 sqM) Glucose 134 H (74-99) mg/dL Plasma Lactic Acid Dmitri (0.7-2.0) mmol/L Calcium 9.5 (8.4-10.2) mg/dL Magnesium (1.6-2.3) mg/dL Total Bilirubin 0.4 (0.2-1.3) mg/dL AST 36 (14-36) U/L ALT 39 (9-52) U/L Alkaline Phosphatase 66 (38-126) U/L Troponin I <0.012 (0.000-0.034) ng/mL Total Protein 7.5 (6.3-8.2) g/dL Albumin 4.3 (3.5-5.0) g/dL Amylase 82 (30-110) U/L Lipase 162 (23-300) U/L Urine Color Urine Appearance (Clear) Urine pH (5.0-8.0) Ur Specific [place] (1.001-1.035) Urine Protein (Negative) Urine Glucose (UA) (Negative) Urine Ketones (Negative) Urine Blood (Negative) Urine Nitrite (Negative) Urine Bilirubin (Negative) Urine Urobilinogen (<2.0) mg/dL Ur Leukocyte Esterase (Negative) 11/13/18 11/13/18 11/13/18 Range/Units 16:32 16:32 17:45 WBC (3.8-10.6) k/uL RBC (3.80-5.40) m/uL Hgb (11.4-16.0) gm/dL Hct (34.0-46.0) % MCV (80.0-100.0) fL MCH (25.0-35.0) pg MCHC (31.0-37.0) g/dL RDW (11.5-15.5) % Plt Count (150-450) k/uL Neutrophils % (Manual) % Lymphocytes % (Manual) % Monocytes % (Manual) % Eosinophils % (Manual) % Neutrophils # (Manual) (1.3-7.7) k/uL Lymphocytes # (Manual) (1.0-4.8) k/uL Monocytes # (Manual) (0-1.0) k/uL Eosinophils # (Manual) (0-0.7) k/uL Nucleated RBCs (0-0) /100 WBC Manual Slide Review RBC Morphology D-Dimer 0.39 (<0.60) mg/L FEU Sodium (137-145) mmol/L Potassium (3.5-5.1) mmol/L Chloride (98-107) mmol/L Carbon Dioxide (22-30) mmol/L Anion Gap mmol/L BUN (7-17) mg/dL Creatinine (0.52-1.04) mg/dL Est GFR (CKD-EPI)AfAm (>60 ml/min/1.73 sqM) Est GFR (CKD-EPI)NonAf (>60 ml/min/1.73 sqM) Glucose (74-99) mg/dL Plasma Lactic Acid Dmitri (0.7-2.0) mmol/L Calcium (8.4-10.2) mg/dL Magnesium 1.9 (1.6-2.3) mg/dL Total Bilirubin (0.2-1.3) mg/dL AST (14-36) U/L ALT (9-52) U/L Alkaline Phosphatase (38-126) U/L Troponin I (0.000-0.034) ng/mL Total Protein (6.3-8.2) g/dL Albumin (3.5-5.0) g/dL Amylase (30-110) U/L Lipase (23-300) U/L Urine Color Yellow Urine Appearance Clear (Clear) Urine pH 5.5 (5.0-8.0) Ur Specific [place] 1.022 (1.001-1.035) Urine Protein Trace H (Negative) Urine Glucose (UA) Negative (Negative) Urine Ketones Negative (Negative) Urine Blood Negative (Negative) Urine Nitrite Negative (Negative) Urine Bilirubin Negative (Negative) Urine Urobilinogen <2.0 (<2.0) mg/dL Ur Leukocyte Esterase Negative (Negative) 11/13/18 Range/Units 18:12 WBC (3.8-10.6) k/uL RBC (3.80-5.40) m/uL Hgb (11.4-16.0) gm/dL Hct (34.0-46.0) % MCV (80.0-100.0) fL MCH (25.0-35.0) pg MCHC (31.0-37.0) g/dL RDW (11.5-15.5) % Plt Count (150-450) k/uL Neutrophils % (Manual) % Lymphocytes % (Manual) % Monocytes % (Manual) % Eosinophils % (Manual) % Neutrophils # (Manual) (1.3-7.7) k/uL Lymphocytes # (Manual) (1.0-4.8) k/uL Monocytes # (Manual) (0-1.0) k/uL Eosinophils # (Manual) (0-0.7) k/uL Nucleated RBCs (0-0) /100 WBC Manual Slide Review RBC Morphology D-Dimer (<0.60) mg/L FEU Sodium (137-145) mmol/L Potassium (3.5-5.1) mmol/L Chloride (98-107) mmol/L Carbon Dioxide (22-30) mmol/L Anion Gap mmol/L BUN (7-17) mg/dL Creatinine (0.52-1.04) mg/dL Est GFR (CKD-EPI)AfAm (>60 ml/min/1.73 sqM) Est GFR (CKD-EPI)NonAf (>60 ml/min/1.73 sqM) Glucose (74-99) mg/dL Plasma Lactic Acid Dmitri 0.8 (0.7-2.0) mmol/L Calcium (8.4-10.2) mg/dL Magnesium (1.6-2.3) mg/dL Total Bilirubin (0.2-1.3) mg/dL AST (14-36) U/L ALT (9-52) U/L Alkaline Phosphatase (38-126) U/L Troponin I (0.000-0.034) ng/mL Total Protein (6.3-8.2) g/dL Albumin (3.5-5.0) g/dL Amylase (30-110) U/L Lipase (23-300) U/L Urine Color Urine Appearance (Clear) Urine pH (5.0-8.0) Ur Specific [place] (1.001-1.035) Urine Protein (Negative) Urine Glucose (UA) (Negative) Urine Ketones (Negative) Urine Blood (Negative) Urine Nitrite (Negative) Urine Bilirubin (Negative) Urine Urobilinogen (<2.0) mg/dL Ur Leukocyte Esterase (Negative) - EKG Data -: EKG Interpreted by Me (and dr mei) EKG Comments: Ventricular rate 86, NC interval 152, QRS 78, QTC QTC 368/440. Normal sinus rhythm. Not concerning for acute ischemia. Disposition Clinical Impression: Upper respiratory infection, acute, Upper respiratory infection, viral Disposition: HOME SELF-CARE Condition: Good Instructions: Upper Respiratory Infection (ED) Additional Instructions: Patient to adhere to previously discussed treatment plan and will take medication(s) as directed. Patient to follow up with PCP in 1-2 days. Patient to return to ED if symptoms do not improve. Prescriptions: Benzonatate [Tessalon Perles] 100 mg PO TID PRN #20 capsule PRN Reason: Cough Is patient prescribed a controlled substance at d/c from ED?: No Referrals: Gage Brito MD [Primary Care Provider] - 1-2 days Time of Disposition: 19:14
[2018-11-13 17:40] LABS: HCT 40.5 % (34.0-46.0); HGB 12.5 gm/dL (11.4-16.0); MCH 30.4 pg (25.0-35.0); MCHC 30.9 g/dL (31.0-37.0); MCV 98.4 fL (80.0-100.0); Mean Platelet Volume 7.5; Platelet Count 157 k/uL (150-450); RBC 4.11 m/uL (3.80-5.40); RDW 13.1 % (11.5-15.5); WBC 3.3 k/uL (3.8-10.6)
[2018-11-13 17:43] LABS: Albumin 4.3 g/dL (3.5-5.0); Calcium 9.5 mg/dL (8.4-10.2); Potassium 3.8 mmol/L (3.5-5.1); Total Bilirubin 0.4 mg/dL (0.2-1.3); Total Protein 7.5 g/dL (6.3-8.2)
[2018-11-13 17:52] LABS: Eosinophils # (M) 0.17 k/uL (0-0.7); Lymphocytes # (M) 0.99 k/uL (1.0-4.8); Neutrophils # (M) 1.75 k/uL (1.3-7.7); Neutrophils % (M) 53 %; Nucleated Red Blood Cells 0 /100 WBC (0-0); Total Cells Counted 100
[2018-11-13 18:02] LABS: Appearance,Urine Clear (Clear); Bilirubin,Urine Negative (Negative); Blood,Urine Negative (Negative); Color,Urine Yellow; Glucose,Urine (UA) Negative (Negative); Ketones,Urine Negative (Negative); Leukocyte Esterase,Urine Negative (Negative); Nitrite,Urine Negative (Negative); PH, Urine 5.5 (5.0-8.0); Protein,Urine Trace (Negative); Specific Gravity,Urine 1.022 (1.001-1.035); Urobilinogen,Urine <2.0 mg/dL (<2.0)
--- NOTE | 2018-11-13 18:13 | XR ---
EXAMINATION TYPE: XR chest 2V DATE OF EXAM: 11/13/2018 COMPARISON: 06/05/2018 HISTORY: Cough TECHNIQUE: Frontal and lateral views of the chest are obtained. FINDINGS: There is no heart failure nor confluent pneumonic infiltrate. Costophrenic angles are maxime r. There are chest leads. Heart size is normal. Bony thorax is intact. IMPRESSION: Normal chest. No change.
[2018-11-13 20:00] VITALS: BP 129/65; PULSE 81; RESP 16
== END 2018-11-13 20:00 | disposition home or self-care (01) ==
LOC: EC 16:10
DX: J06.9 Acute upper respiratory infection, unspecified (principal); K21.9 Gastro-esophageal reflux disease without esophagitis; E78.5 Hyperlipidemia, unspecified; I10 Essential (primary) hypertension; E03.9 Hypothyroidism, unspecified; Z79.899 Other long term (current) drug therapy; Z91.048 Other nonmedicinal substance allergy status
CPT/HCPCS: 36415; 71046; 80053; 81003; 82150; 83605; 83690; 83735; 84484; 85025; 85379; 93005; 96360; 99285

== ENCOUNTER → 2019-03-26 | Outpatient (CLI) | payer MEDICARE, BC ==
--- NOTE | 2019-03-26 14:34 | US ---
EXAMINATION TYPE: US thyroid st tissue head/neck DATE OF EXAM: 03/26/2019 COMPARISON: NONE CLINICAL HISTORY: E04.2 nontoxic multinodular goiter. GLAND SIZE: Right Lobe: 4.7 x 1.8 x 1.6 cm Overall Parenchyma: homogenous Left Lobe: 4.4 x 1.6 x 1.3 cm Overall Parenchyma: homogeneous Isthmus Thickness: 0.5 cm NODULES RIGHT: # of nodules measured on right: 1 1. 0.8 X 0.6 x 0.7 cm echogenic mixed nodule at the mid pole with well-defined margins. This nodul e is wider than tall and shows no intranodular vascularity. No prior here LEFT: # of nodules measured on left: 1 1. 0.7 X 0.7 x 0.8 cm echogenic solid nodule at the mid pole with well-defined margins. This nodul e is wider than tall and shows no intranodular vascularity. No prior here ISTHMUS: # of nodules measured in the isthmus: 0 Bilateral neck scanned, no evidence of lymphadenopathy. IMPRESSION: Subcentimeter nodules bilateral thyroid lobes
== END | disposition home or self-care (01) ==
LOC: RADUSWWP 13:36
PROVIDERS: ATTEND Internal Medicine Endocrinology, Diabetes & Metabolism
DX: E04.2 Nontoxic multinodular goiter (principal)
CPT/HCPCS: 76536

== ENCOUNTER → 2019-08-20 | Outpatient (CLI) | payer MEDICARE, BC ==
--- NOTE | 2019-08-21 13:33 | MM ---
Reason for exam: screening (asymptomatic). Last mammogram was performed 1 year ago. History: Patient is postmenopausal. Family history of breast cancer in paternal aunt at age 40. Benign excisional biopsy of the right breast, 1978. Benign excisional biopsy of the left breast, 1976. Took estrogen for 15 years beginning at age 46. Physical Findings: A clinical breast exam by your physician is recommended on an annual basis and results should be correlated with mammographic findings. MG 3D Screening Mammo W/Cad Bilateral CC and MLO view(s) were taken. Prior study comparison: August 16, 2018, bilateral MG 3d diag mammo w/cad VANESA. August 22, 2017, left breast MG 3d work up w/cad LT. The breast tissue is heterogeneously dense. This may lower the sensitivity of mammography. Focal asymmetry upper outer left breast middle third position. This finding is changed when compared with previous exams. ASSESSMENT: Incomplete: need additional imaging evaluation, BI-RAD 0 RECOMMENDATION: Special view mammogram of the left breast. If lesion persists on supplemental views, image directed ultrasound is recommended. [facility] will attempt to contact patient to return for supplemental views and ultrasound if indicated.
== END ==
LOC: RADMAMWWP 13:02
PROVIDERS: ATTEND Obstetrics & Gynecology
DX: Z12.31 Encounter for screening mammogram for malignant neoplasm of breast (principal)
CPT/HCPCS: 77063; 77067

== ENCOUNTER → 2019-08-30 | Outpatient (CLI) | payer MEDICARE, BC ==
--- NOTE | 2019-08-30 14:33 | MM ---
Reason for exam: additional evaluation requested from abnormal screening. Last mammogram was performed less than 1 month ago. History: Patient is postmenopausal. Family history of breast cancer in paternal aunt at age 40. Benign excisional biopsy of the right breast, 1978. Benign excisional biopsy of the left breast, 1976. Took estrogen for 15 years beginning at age 46. Physical Findings: Nurse did not find any significant physical abnormalities on exam. MG 3D Work Up W/Cad LT Spot compression CC, spot compression MLO, and LM view(s) were taken of the left breast. Prior study comparison: August 20, 2019, bilateral MG 3d screening mammo w/cad. August 16, 2018, bilateral MG 3d diag mammo w/cad [facility]. The breast tissue is heterogeneously dense. This may lower the sensitivity of mammography. Benign appearing calcifications in the left breast. The previously seen abnormality resolves on additional views and appears as fibroglandular tissue compatible with summation. Left post surgical change. These results were verbally communicated with the patient and result sheet given to the patient on 08/30/19. ASSESSMENT: Benign, BI-RAD 2 RECOMMENDATION: Return to routine screening mammogram schedule for both breasts.
== END | disposition home or self-care (01) ==
LOC: RADMAMWWP 13:44
PROVIDERS: ATTEND Obstetrics & Gynecology
DX: R92.8 Other abnormal and inconclusive findings on diagnostic imaging of breast (principal)
CPT/HCPCS: 77065; G0279; 77061

== ENCOUNTER → 2020-11-03 | Outpatient (CLI) | payer MEDICARE, BC ==
--- NOTE | 2020-11-03 13:30 | MM ---
Reason for exam: screening (asymptomatic). Last mammogram was performed 1 year and 2 months ago. History: Patient is postmenopausal. Family history of breast cancer in paternal aunt at age 40. Benign excisional biopsy of the right breast, 1978. Benign excisional biopsy of the left breast, 1976. Took estrogen for 15 years beginning at age 46. Physical Findings: A clinical breast exam by your physician is recommended on an annual basis and results should be correlated with mammographic findings. MG 3D Screening Mammo W/Cad Bilateral CC and MLO view(s) were taken. Prior study comparison: August 30, 2019, left breast MG 3d work up w/cad LT. August 20, 2019, bilateral MG 3d screening mammo w/cad. The breast tissue is heterogeneously dense. This may lower the sensitivity of mammography. Finding #1: Stable architectural distortion in the outer quadrant of the right breast consistent with known excision changes. Finding #2: There are typically benign vascular calcifications in both breasts. There is no discrete abnormality. ASSESSMENT: Benign, BI-RAD 2 RECOMMENDATION: Routine screening mammogram of both breasts in 1 year.
--- NOTE | 2020-11-03 15:43 | BD ---
EXAMINATION TYPE: Axial Bone Density DATE OF EXAM: 11/03/2020 COMPARISON: 11/05/2015 CLINICAL HISTORY: Height: 62 IN Weight: 132 LBS FRAX RISK QUESTIONS: Secondary Osteoporosis: 2. Hyperthyroidism: YES 3. Menopause before 45: PARTIAL HYST AGE 40 RISK FACTORS HISTORY OF: Family History of Osteoporosis: YES SISTER Active: YES Postmenopausal woman: PARTIAL HYST AGE 40 Take estrogen and/or progesterone medications: NOT NOW How long: TOOK FOR 5 YEARS MEDICATIONS: Thyroid Medications: YES Which medication: Synthroid How Lon + YEARS Additional Medications: CALCIUM, MULTI VIT, SYNTHROID,BLOOD PRESSURE MEDS, SIMVASTATIN, BIOTIN, COQ10 EXAM MEASUREMENTS: Bone mineral densitometry was performed using the [employer] System. Bone mineral density as measured about the Lumbar spine is: ----- L1-L4(G/cm2): 1.080 T Score Values are as follows: ----- L2: -0.9 ----- L3: 0.0 ----- L4: -0.8 ----- L1-L4: -0.8 Bone mineral density has: Decreased -4.9% since study of: 11/05/2015 Bone mineral density about the R hip (g/cm2): 0.745 Bone mineral density about the L hip (g/cm2): 0.748 T Score values are as follows: -----R Neck: -2.1 -----L Neck: -2.1 -----R Total: -1.2 -----L Total: -1.2 Bone mineral density has: Decreased -9.2% since study of: 11/05/2015 IMPRESSION: Osteopenia (T Score between -2.5 and -1). There is slightly increased risk of fracture and the patient may be considered for treatment. Re-Screen 2-5 years. NOTE: T-SCORE=SD OF THE YOUNG ADULT MEAN.
== END | disposition home or self-care (01) ==
LOC: RADMAMWWP 09:48
PROVIDERS: ATTEND Obstetrics & Gynecology
DX: Z12.31 Encounter for screening mammogram for malignant neoplasm of breast (principal); N95.1 Menopausal and female climacteric states; M85.80 Other specified disorders of bone density and structure, unspecified site
CPT/HCPCS: 77063; 77067; 77080

== ENCOUNTER → 2023-08-09 | Outpatient (CLI) | payer MEDICARE, BC ==
--- NOTE | 2023-08-09 18:46 | BD ---
EXAMINATION TYPE: Axial Bone Density DATE OF EXAM: 08/09/2023 CLINICAL HISTORY: 82 years old Female. ICD-10 CODE: M8588 OSTEO Height: 5 ft 3 1/2 in Weight: 113 FRAX RISK QUESTIONS: Alcohol (3 or more units per day): no Family History (Parent hip fracture): no Glucocorticoids (More than 3mos): no (Ex: prednisone, prednisolone, methylprednisolone, dexamethasone, and hydrocortisone). History of Fracture in Adulthood: yes Secondary Osteoporosis: 1. Type 1 Diabetes: type 2 2. Hyperthyroidism: no 3. Menopause before 45: yes 4. Malnutrition: no 5. Chronic liver disease: no Rheumatoid Arthritis: no Current Tobacco Use: no RISK FACTORS HISTORY OF: Surgery to Spine/Hip(right/left)/Wrist (right/left): no Family History of Osteoporosis: yes Active: yes Diet low in dairy products/other sources of calcium: no Postmenopausal woman: yes Take estrogen and/or progesterone medications: no Lost more than 2 inches in height since high school: no Frequent falls: no Poor Health: good Hyperparathyroidism:no Adrenal Insufficiency: no MEDICATIONS: Thyroid Medications: yes Which medication: synthroid How Long: long time Additional Medications: synthroid, budesonide ec, Azathioprine,losartan, metformin, amlodipine, eliqu is, ocuvite Additional History: aisha [place] tunnel surg EXAM MEASUREMENTS: Bone mineral densitometry was performed using the [employer] System. Bone mineral density as measured about the Lumbar spine is: ----- L1-L4(G/cm2): 1.048 T Score Values are as follows: ----- L1: -2.3 ----- L2: -1.2 ----- L3: -0.5 ----- L4: -0.6 ----- L1-L4: -1.1 Z Score Values are as follows: ----- L1: 0.1 ----- L2: 1.1 ----- L3: 1.9 ----- L4: 1.7 ----- L1-L4: 1.3 Bone mineral density has: decreased -3.0 % since study of: 2019 Bone mineral density about the R hip (g/cm2): 0.732 Bone mineral density about the L hip (g/cm2): 0.765 T Score values are as follows: -----R Neck: -2.2 -----L Neck: -2.0 -----R Total: -1.6 -----L Total: -1.3 Z Score values are as follows: -----R Neck: 0.5 -----L Neck: 0.7 -----R Total: 1.0 -----L Total: 1.3 Bone mineral density has: decreased -2.9 % since study of: 2019 FRAX%s: The graph provided illustrates a 20.5 % chance for a major osteoporotic fx and a 6.6 % chance for the hips probability for fx in 10 years time. IMPRESSION: Osteopenia (T Score between -2.5 and -1). There is slightly increased risk of fracture and the patient may be considered for treatment. Re-Screen 2-5 years. NOTE: T-SCORE=SD OF THE YOUNG ADULT MEAN.
--- NOTE | 2023-08-10 10:45 | MM ---
Reason for Exam: Screening (asymptomatic). Last mammogram was performed 2 year(s) and 9 month(s) ago. Patient History: Menarche at age 12. Hysterectomy at age 46. Postmenopausal. Estrogen for 15 years from age 46 until age 61. 1976, Benign Excisional Biopsy on the left side. 1978, Benign Excisional Biopsy on the right side. Paternal aunt had breast cancer, age 40. Risk Values: Raiza 5 year model risk: 1.4%. NCI Lifetime model risk: 1.6%. Prior Study Comparison: 08/20/2019 Bilateral Screening Mammogram, [facility]. 08/30/2019 Left Diagnostic Mammogram, [facility]. 11/03/2020 Bilateral Screening Mammogram, [facility]. Tissue Density: The breast tissue is heterogeneously dense. This may lower the sensitivity of mammography. Findings: Analyzed By CAD. There is no suspicious group of microcalcifications or new suspicious mass in either breast. Surgical clip noted. There are benign-appearing calcifications. Overall Assessment: Benign, BI-RAD 2 Management: Screening Mammogram of both breasts in 1 year. . Patient should continue monthly self-breast exams. A clinical breast exam by your physician is recommended on an annual basis. This exam should not preclude additional follow-up of suspicious palpable abnormalities. Note on Raiza scores and lifetime risk: 1. A Raiza score greater than 3% is considered moderate risk. If this is the case, consider specialist referral to assess eligibility for a risk reducing agent. 2. If overall lifetime risk for the development of breast cancer is 20% or higher, the patient may qualify for future screening with alternating mammogram and breast MRI. Electronically signed and approved by: Sachin Calderon M.D. Radiologis
== END | disposition home or self-care (01) ==
LOC: RADMAMWWP 14:38
PROVIDERS: ATTEND Obstetrics & Gynecology
DX: Z12.31 Encounter for screening mammogram for malignant neoplasm of breast (principal); M85.89 Other specified disorders of bone density and structure, multiple sites; Z78.0 Asymptomatic menopausal state; Z80.3 Family history of malignant neoplasm of breast
CPT/HCPCS: 77063; 77067; 77080

== ENCOUNTER → 2024-01-01 | Outpatient (CLI) | payer MEDICARE, BC ==
[2024-01-01 15:59] LABS: ALT 26 U/L (8-44); AST 39 U/L (13-35); Albumin 4.2 g/dL (3.8-4.9); Albumin/Globulin Ratio 1.35 Ratio (1.60-3.17); Alkaline Phosphatase 88 U/L (41-126); Blood Urea Nitrogen 17.3 mg/dL (9.0-27.0); Calcium 10.2 mg/dL (8.7-10.3); Carbon Dioxide 25.7 mmol/L (21.6-31.8); Chloride 106 mmol/L (96-109); Globulin 3.1 g/dL (1.6-3.3); Glucose 58 mg/dL (70-110); Potassium 3.9 mmol/L (3.5-5.5); Sodium 143 mmol/L (135-145); Total Bilirubin 0.5 mg/dL (0.3-1.2); Total Protein 7.3 g/dL (6.2-8.2)
[2024-01-01 16:18] LABS: HCT 33.5 % (37.2-46.3); MCH 35.5 pg (27.0-32.0); MCHC 32.8 g/dL (32.0-37.0); MCV 108.1 FL (80.0-97.0); NRBC Per 100 WBC 0 X 10*3/uL (0.00-0.01); Platelet Count 105 X 10*3/uL (140-440); RDW 12.7 % (11.5-14.5); WBC 3.17 X 10*3/uL (4.50-10.00)
[2024-01-01 16:47] LABS: Basophils # (A) 0.06 X 10*3/uL (0.00-0.10); Basophils % (A) 1.9 %; Eosinophils # (A) 0.33 X 10*3/uL (0.04-0.35); Eosinophils % (A) 10.4 %; Lymphocytes # (A) 0.94 X 10*3/uL (0.90-5.00); Lymphocytes % (A) 29.7 %; Monocytes # (A) 0.43 X 10*3/uL (0.20-1.00); Monocytes % (A) 13.6 %; Neutrophils % (A) 44.1 %
== END | disposition home or self-care (01) ==
LOC: LABWHC1 11:07
PROVIDERS: ATTEND Internal Medicine Gastroenterology
DX: K75.4 Autoimmune hepatitis (principal); K74.60 Unspecified cirrhosis of liver
CPT/HCPCS: 36415; 80053; 82105; 85025

== ENCOUNTER → 2024-08-15 | Outpatient (CLI) | payer MEDICARE, BC ==
--- NOTE | 2024-08-18 10:21 | MM ---
Reason for Exam: Screening (asymptomatic). Last screening mammogram was performed 12 month(s) ago. Patient History: Menarche at age 12. Hysterectomy at age 46. Postmenopausal. Estrogen for 15 years from age 46 until age 61. 1976, Benign Excisional Biopsy on the left side. 1978, Benign Excisional Biopsy on the right side. Paternal aunt had breast cancer, age 40. Risk Values: Raiza 5 year model risk: 1.3%. NCI Lifetime model risk: 1.3%. Prior Study Comparison: 08/30/2019 Left Diagnostic Mammogram, [facility]. 11/03/2020 Bilateral Screening Mammogram, [facility]. 08/09/2023 Bilateral MG 3D screening mammo w/cad, [facility]. Tissue Density: The breasts are heterogeneously dense, which may obscure small masses. Findings: Analyzed By CAD. The pattern is symmetrical. Pattern is stable. Benign vascular calcifications present bilaterally. No suspicious groups of microcalcifications, spiculated or lobular masses, architectural distortion or other secondary signs of malignancy are mammographically apparent. Overall Assessment: Benign, BI-RAD 2 Management: Screening Mammogram of both breasts in 1 year. A negative mammogram report should not preclude additional follow up of suspicious palpable abnormalities. Patient should continue monthly self breast exam. A clinical breast exam by your physician is recommended on an annual basis and results should be correlated with mammographic findings. Note on Raiza scores and lifetime risk: 1. A Raiza score greater than 3% is considered moderate risk. If this is the case, consider specialist referral to assess eligibility for a risk reducing agent. 2. If overall lifetime risk for the development of breast cancer is 20% or higher, the patient may qualify for future screening with alternating mammogram and breast MRI. [facility], , 08/18/2024 10:18 AM. Electronically signed and approved by: Alonso Baker D.O. Radiologis
== END | disposition home or self-care (01) ==
LOC: RADMAMWWP 11:44
PROVIDERS: ATTEND Family Medicine
DX: Z12.31 Encounter for screening mammogram for malignant neoplasm of breast
CPT/HCPCS: 77063; 77067

== ENCOUNTER → 2025-03-28 | Outpatient (CLI) | payer MEDICARE, BC ==
[2025-03-28 11:35] LABS: African American GFR (CKD) 47 (>60 ml/min/1.73 sqM); Blood Urea Nitrogen 25 mg/dL (7-17); Non-African American GFR(CKD) 41 (>60 ml/min/1.73 sqM)
--- NOTE | 2025-03-28 13:59 | CT ---
EXAMINATION TYPE: CT abdomen pelvis w con CT DLP: 412.90 mGycm, Automated exposure control for dose reduction was used. DATE OF EXAM: 03/28/2025 1:18 PM COMPARISON: CT abdomen 06/12/2018, CT abdomen and pelvis 05/18/2018, 02/01/2017 CLINICAL INDICATION:Female, 84 years old with history of R63.4 abnormal weight loss; abnormal weight loss TECHNIQUE: Standard CT of the abdomen and pelvis following the administration of 100 cc of Isovue 3 00 IV contrast material and oral contrast. Coronal and sagittal reformats were performed. FINDINGS: LOWER CHEST: Unremarkable ABDOMEN LIVER: Unremarkable GALLBLADDER AND BILE DUCTS: The gallbladder is surgically absent. No biliary ductal dilatation. PANCREAS: Pancreatic body 1 cm cystic lesion which is not definitively visualized on prior exam (seri es 4, image 20). No pancreatic duct dilatation. No pancreatic parenchymal calcifications. No surround ing fluid collections inflammatory changes. SPLEEN: Unremarkable. ADRENAL GLANDS: Unremarkable. KIDNEYS AND URETERS: No evidence of hydronephrosis or renal calculus. The kidneys enhance symmetrical ly. Contrast is demonstrated within both collecting systems on the delayed phase. Left renal upper po le simple 1 cm cyst redemonstrated. No follow up recommended. PELVIS BLADDER: Incompletely distended but grossly unremarkable. REPRODUCTIVE: The uterus is surgically absent. ABDOMEN & PELVIS STOMACH AND BOWEL: Post surgical changes from Ronald fundoplication.Enteric contrast reaches the prox imal transverse colon. [id number] also present throughout the colon. Sigmoid diverticulosis wit hout evidence for acute diverticulitis. No focal bowel wall thickening or surrounding inflammatory ch anges. No evidence of bowel obstruction. PERITONEUM: No evidence of pneumoperitoneum or free fluid. VASCULATURE: Mild atherosclerotic calcifications are present throughout the abdominal aorta and its b ranches. No evidence of aortic aneurysm. MUSCULOSKELETAL: No acute osseous abnormalities LYMPH NODES: No evidence for lymphadenopathy. SOFT TISSUE/ABDOMINAL WALL: Unremarkable IMPRESSION: 1. No CT evidence for acute abdominal/pelvic process. 2. 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 Recommend further evaluation w ith MR abdomen with IV contrast (pancreatic mass protocol). 3. Colonic diverticulosis without evidence for acute diverticulitis. [facility], , 03/28/2025 1:57 PM
== END | disposition home or self-care (01) ==
LOC: RADCTMAIN 10:34
PROVIDERS: ATTEND Family Medicine
DX: K57.30 Diverticulosis of large intestine without perforation or abscess without bleeding (principal); R63.4 Abnormal weight loss
CPT/HCPCS: 82565; 84520; 74177; 36415; Q9967